=== PATIENT | female | born 1940 | race Caucasian/White ===

== ENCOUNTER 2017-10-18 05:30 | Emergency (ER) | payer MEDICARE ==
[2017-10-18] MEDS ORDERED: IBUPROFEN 600 MG TAB PO STA (05:41)
--- NOTE | 2017-10-18 05:41 | ED ---
General Adult HPI - General Stated complaint: Sore Throat Time Seen by Provider: 10/18/17 05:30 Source: RN notes reviewed - History of Present Illness Initial comments: This is a 77-year-old female presents emergency department stating that she's had a sore throat since yesterday but at 4:30 this point she woke up and was very dry and was a lot more painful. Patient states currently he is gotten much better and she's feeling better. Patient denies any fever chills. Patient denies any difficulty breathing shortness of breath per patient denies any. Patient denies any chest pain difficulty breathing. Patient states she has had some postnasal drip and when I mentioned it she thought that was all very likely possibility for the sore throat. Patient denies any ear pain. Patient denies any neck pain or headache. - Related Data Home Medications Medication Instructions Recorded Confirmed metFORMIN HCL [Glucophage] 500 mg PO BID 10/13/15 10/13/15 Allergies Allergy/AdvReac Type Severity Reaction Status Date / Time codeine AdvReac Nausea Verified 10/13/15 14:34 Review of Systems ROS Statement: Those systems with pertinent positive or pertinent negative responses have been documented in the HPI. ROS Other: All systems not noted in ROS Statement are negative. Past Medical History Past Medical History: No Reported History History of Any Multi-Drug Resistant Organisms: None Reported Past Surgical History: Cholecystectomy, Orthopedic Surgery, Tonsillectomy, Tubal Ligation Additional Past Surgical History / Comment(s): several foot suregeries. lert knee tumor removed, jaw surgery Past Psychological History: No Psychological Hx Reported Smoking Status: Never smoker Past Alcohol Use History: None Reported Past Drug Use History: None Reported General Exam - General Exam Comments Initial Comments: GENERAL: Patient is well-developed and well-nourished. Patient is nontoxic and well- hydrated and is in mild distress. ENT: Neck is soft and supple. No significant lymphadenopathy is noted. Oropharynx is clear. Moist mucous membranes. Neck has full range of motion without eliciting any pain. EYES: The sclera were anicteric and conjunctiva were pink and moist. Extraocular movements were intact and pupils were equal round and reactive to light. Eyelids were unremarkable. PULMONARY: Unlabored respirations. Good breath sounds bilaterally. No audible rales rhonchi or wheezing was noted. CARDIOVASCULAR: There is a regular rate and rhythm without any murmurs gallops or rubs. ABDOMEN: Soft and nontender with normal bowel sounds. No palpable organomegaly was noted. There is no palpable pulsatile mass. SKIN: Skin is clear with no lesions or rashes and otherwise unremarkable. NEUROLOGIC: Patient is alert and oriented x3. Cranial nerves II through XII are grossly intact. Motor and sensory are also intact. Normal speech, volume and content. Symmetrical smile. MUSCULOSKELETAL: Normal extremities with adequate strength and full range of motion. LYMPHATICS: No significant lymphadenopathy is noted PSYCHIATRIC: Normal psychiatric evaluation. Course Vital Signs 10/18/17 05:44 Temperature 99.1 F Pulse Rate 68 Respiratory 18 Rate Blood Pressure 179/74 O2 Sat by Pulse 95 Oximetry Medical Decision Making - Lab Data Lab Results 10/18/17 Range/Units 05:40 Group A Strep Rapid Negative (Negative) Disposition Clinical Impression: Acute viral pharyngitis, Postnasal drip Disposition: HOME SELF-CARE Condition: Good Instructions: Pharyngitis (ED) Referrals: Yaneth Cook MD [Primary Care Provider] - 1-2 days Time of Disposition: 06:07
[2017-10-18 05:47] VITALS: BP 179/74; PULSE 68; RESP 18; TEMP 99.1
== END 2017-10-18 06:13 | disposition home or self-care (01) ==
LOC: EC 05:30
DX: J02.9 Acute pharyngitis, unspecified (principal); R09.82 Postnasal drip; Z79.84 Long term (current) use of oral hypoglycemic drugs; Z88.5 Allergy status to narcotic agent
CPT/HCPCS: 87081; 87430; 99283

== ENCOUNTER 2018-05-19 09:52 | Emergency (ER) | payer MEDICARE ==
[2018-05-19] MEDS ORDERED: KETOROLAC 60 MG/2 ML VIAL IM STA (10:27)
[2018-05-19] MEDS ORDERED: predniSONE 50 MG TAB PO STA (10:27)
--- NOTE | 2018-05-19 10:34 | ED ---
General Adult HPI - General Chief complaint: Back Pain/Injury Stated complaint: left sided back pain radiating down left leg Time Seen by Provider: 05/19/18 10:00 Source: patient, RN notes reviewed Mode of arrival: ambulatory Limitations: no limitations - History of Present Illness Initial comments: This is a 77-year-old female who comes in complaining of back pain on the left side which radiates down to her anterior thigh is a little bit into the groin. Patient states it started about a month ago. Patient states she's been seeing a chiropractor and didn't see another physician they told it was probably muscular and it been working on it since. Patient states none of this is helped. Patient states the pain is worse when she standing and tries to lift her leg. Patient states if she lies down the pain is always gone away completely patient denies any numbness or weakness patient denies any urinary incontinence or retention. Patient denies any dysuria hematuria urinary frequency. Patient denies any fever chills per patient denies any abdominal pain. Patient denies any injury or trauma. - Related Data Home Medications Medication Instructions Recorded Confirmed metFORMIN HCL [Glucophage] 500 mg PO BID 10/13/15 10/13/15 Previous Rx's Medication Instructions Recorded predniSONE 40 mg PO DAILY #8 tab 05/19/18 Allergies Allergy/AdvReac Type Severity Reaction Status Date / Time codeine AdvReac Nausea Verified 05/19/18 10:04 Review of Systems ROS Statement: Those systems with pertinent positive or pertinent negative responses have been documented in the HPI. ROS Other: All systems not noted in ROS Statement are negative. Past Medical History Past Medical History: No Reported History History of Any Multi-Drug Resistant Organisms: None Reported Past Surgical History: Cholecystectomy, Orthopedic Surgery, Tonsillectomy, Tubal Ligation Additional Past Surgical History / Comment(s): several foot surgeries. left knee tumor removed, jaw surgery Past Psychological History: No Psychological Hx Reported Smoking Status: Never smoker Past Alcohol Use History: None Reported Past Drug Use History: None Reported General Exam - General Exam Comments Initial Comments: GENERAL: Patient is well-developed and well-nourished. Patient is nontoxic and well- hydrated and is in no acute distress. ENT: Neck is soft and supple. No significant lymphadenopathy is noted. Oropharynx is clear. Moist mucous membranes. Neck has full range of motion without eliciting any pain. EYES: The sclera were anicteric and conjunctiva were pink and moist. Extraocular movements were intact and pupils were equal round and reactive to light. Eyelids were unremarkable. PULMONARY: Unlabored respirations. Good breath sounds bilaterally. No audible rales rhonchi or wheezing was noted. CARDIOVASCULAR: There is a regular rate and rhythm without any murmurs gallops or rubs. ABDOMEN: Soft and nontender with normal bowel sounds. No palpable organomegaly was noted. There is no palpable pulsatile mass. SKIN: Skin is clear with no lesions or rashes and otherwise unremarkable. NEUROLOGIC: Patient is alert and oriented x3. Cranial nerves II through XII are grossly intact. Motor and sensory are also intact. Normal speech, volume and content. Symmetrical smile. Patient's straight leg test bilaterally is normal. MUSCULOSKELETAL: Normal extremities with adequate strength and full range of motion. No lower extremity swelling or edema. No calf tenderness. Patient has no CVA tenderness. Patient has no pain with movement while lying but when she stands she has pain with lifting her leg. LYMPHATICS: No significant lymphadenopathy is noted PSYCHIATRIC: Normal psychiatric evaluation. Limitations: no limitations Course Vital Signs 05/19/18 09:57 Temperature 97.4 F L Pulse Rate 66 Respiratory 18 Rate Blood Pressure 196/86 O2 Sat by Pulse 97 Oximetry Medical Decision Making - Medical Decision Making Patient received prednisone and Toradol emergency department. Patient's lumbosacral spine show degenerative disc disease facet arthropathy some spinal curvature and osteopenia. - Lab Data Lab Results 05/19/18 Range/Units 10:30 Urine Color Light Yellow Urine Appearance Clear (Clear) Urine pH 5.5 (5.0-8.0) Ur Specific [place] 1.026 (1.001-1.035) Urine Protein Negative (Negative) Urine Glucose (UA) Negative (Negative) Urine Ketones Negative (Negative) Urine Blood Negative (Negative) Urine Nitrite Negative (Negative) Urine Bilirubin Negative (Negative) Urine Urobilinogen <2.0 (<2.0) mg/dL Ur Leukocyte Esterase Moderate H (Negative) Urine RBC 1 (0-5) /hpf Urine WBC 6 H (0-5) /hpf Ur Squamous Epith Cells 4 (0-4) /hpf Urine Bacteria Rare H (None) /hpf Urine Mucus Rare H (None) /hpf Disposition Clinical Impression: Sciatica Disposition: HOME SELF-CARE Instructions: Sciatica (ED) Prescriptions: predniSONE 40 mg PO DAILY #8 tab Is patient prescribed a controlled substance at d/c from ED?: No Referrals: Yaneth Cook MD [Primary Care Provider] - 1-2 days Time of Disposition: 11:26
--- NOTE | 2018-05-19 10:53 | XR ---
Lumbosacral spine HISTORY: Left-sided back pain radiating down left leg 5 views of the lumbosacral spine There is no evident spondylolysis. Minimal anterolisthesis grade 1 L5-S1. Sclerosis present in the po sterior elements compatible with facet arthropathy. Lumbar vertebral bodies show preserved height and alignment. There is a spinal curvature. Multilevel spondylosis is present. Loss of disc height is pr esent at the intervertebral levels, there is associated vacuum phenomenon at L4-5, L5-S1. Bone minera lization is reduced. Surgical clips noted incidentally in the right upper quadrant. IMPRESSION: Degenerative disc disease, facet arthropathy, spinal curvature. Osteopenia. Lumbar MRI ma y be of benefit.
[2018-05-19 10:57] LABS: Appearance,Urine Clear (Clear); Bacteria,Urine Rare /hpf; Bilirubin,Urine Negative (Negative); Blood,Urine Negative (Negative); Color,Urine Light Yellow; Glucose,Urine (UA) Negative (Negative); Ketones,Urine Negative (Negative); Leukocyte Esterase,Urine Moderate (Negative); Mucus,Urine Rare /hpf; Nitrite,Urine Negative (Negative); PH, Urine 5.5 (5.0-8.0); Protein,Urine Negative (Negative); RBC,Urine 1 /hpf (0-5); Specific Gravity,Urine 1.026 (1.001-1.035); Squamous Epithelial Cell,Urine 4 /hpf (0-4); Urobilinogen,Urine <2.0 mg/dL (<2.0); WBC,Urine 6 /hpf (0-5)
[2018-05-19 11:37] VITALS: BP 180/85; PULSE 85; RESP 16; TEMP 97
== END 2018-05-19 11:37 | disposition home or self-care (01) ==
LOC: EC 09:52
DX: M54.30 Sciatica, unspecified side (principal); M12.88 Other specific arthropathies, not elsewhere classified, other specified site; M85.88 Other specified disorders of bone density and structure, other site; Z79.84 Long term (current) use of oral hypoglycemic drugs; Z88.5 Allergy status to narcotic agent
CPT/HCPCS: 81001; 72110; 99283; 96372; J1885; J7512

== ENCOUNTER → 2018-06-12 | Outpatient (CLI) | payer MEDICARE ==
--- NOTE | 2018-06-12 20:44 | MR ---
EXAMINATION TYPE: MR lumbar spine wo/w con DATE OF EXAM: 06/12/2018 COMPARISON: None HISTORY: Acute left side low back pain w/ sciatica. TECHNIQUE: Multiplanar, multisequence images of the lumbar spine were acquired utilizing [address] gadolinium contrast. FINDINGS: Vertebral body heights are maintained. There is patchy bone marrow signal that is overall w ithin normal limits. The conus medullaris is unremarkable terminating at T12-L1. Post contrast images demonstrate no abnormal contrast enhancement. Multilevel disc desiccation is seen throughout the vis ualized thoracolumbar spine. A T2/T1 hyperintense vertebral body hemangioma is present of L3. Probabl e bilateral renal sinus cysts are T2 hyperintense and T1 hypointense. L1-L2: There is a broad-based disc bulge and facet arthropathy resulting in mild bilateral neural for aminal narrowing. No significant spinal canal stenosis. L2-L3: There is a broad-based disc bulge, ligamentum flavum buckling and facet arthropathy resulting in mild bilateral neural foraminal narrowing. No spinal canal stenosis. L3-L4: There is a left eccentric broad-based disc bulge and facet arthropathy as well as ligamentum f lavum buckling resulting in moderate spinal canal stenosis, moderate left neural foraminal narrowing and mild right neural foraminal narrowing. L4-L5: There is extensive facet arthropathy and ligamentum flavum buckling on the left impressing upo n the thecal sac and creating focal moderate to severe spinal canal stenosis as well as moderate bila teral neural foraminal narrowing in combination with a broad-based disc bulge. L5-S1: There is a small central disc herniation/extrusion with 2 mm cranial migration of the disc fra gment superimposed upon a broad-based disc bulge. There is additionally facet arthropathy and ligamen viola flavum buckling creating mild right neural foraminal narrowing and mild spinal canal stenosis. Le ft neural foramen is patent. IMPRESSION: 1. Small central disc herniation at L5-S1 with 2 mm disc extrusion cranially creating mild spinal can al stenosis. 2. Extensive left lateral ligamentum flavum buckling and facet arthropathy at L4-L5 creating focal mo derate to severe spinal canal stenosis at this level and moderate bilateral neural foraminal narrowin g in combination with degenerative disc disease. 3. Multilevel degenerative disc disease of the visualized thoracolumbar spine resulting in moderate s ann canal stenosis at L3-L4 and variable degrees of neural foraminal narrowing as described above. 4. Probable bilateral renal sinus cysts. Renal ultrasound or CT urogram could be performed for confir mation. 5. No abnormal postcontrast enhancement of the lumbar spine.
== END | disposition home or self-care (01) ==
LOC: RADMRIMAIN 10:00
PROVIDERS: ATTEND Internal Medicine
DX: M48.07 Spinal stenosis, lumbosacral region (principal); M99.73 Connective tissue and disc stenosis of intervertebral foramina of lumbar region; M51.17 Intervertebral disc disorders with radiculopathy, lumbosacral region; M51.15 Intervertebral disc disorders with radiculopathy, thoracolumbar region; M46.96 Unspecified inflammatory spondylopathy, lumbar region
CPT/HCPCS: 72158; A9581

== ENCOUNTER → 2018-09-09 | Outpatient (CLI) | payer OTHER ==
--- NOTE | 2018-09-09 13:13 | XR ---
EXAMINATION TYPE: XR knee complete RT DATE OF EXAM: 09/09/2018 CLINICAL HISTORY: pain TECHNIQUE: Three views of the right knee are obtained. COMPARISON: None. FINDINGS: There is no acute fracture/dislocation. Moderate to severe degenerative joint space narrow ing. The overlying soft tissue appears unremarkable. IMPRESSION: There is no acute fracture or dislocation.ICD 10 NO FRACTURE, INITIAL EVALUATION
--- NOTE | 2018-09-09 13:14 | XR ---
EXAMINATION TYPE: XR femur LT DATE OF EXAM: 09/09/2018 CLINICAL HISTORY: pain TECHNIQUE: Two views of the left femur are obtained. COMPARISON: None. FINDINGS: There is no acute fracture or dislocation seen of the femur. Moderate joint space narrowi ng about the left hip. Sclerosis of distal left femur compatible with prior surgical intervention. The overlying soft tissue appears unremarkable. IMPRESSION: There is no acute fracture or dislocation seen of the femur. ICD 10 NO FRACTURE, INITIAL EVALUATION
--- NOTE | 2018-09-09 13:37 | XR ---
EXAMINATION TYPE: XR Hip LT and AP Pelvis DATE OF EXAM: 09/09/2018 COMPARISON: NONE HISTORY: Pain after a fall on August 27, 2018 TECHNIQUE: A single AP view of the pelvis is obtained. Two views of the left hip are obtained. FINDINGS: There is no acute fracture/dislocation evident in the pelvis. The hip joints demonstrate bilateral moderate femoral acetabular arthropathy. Periosteal reaction is seen along the medial steve x of the left femoral neck. The overlying soft tissue appears unremarkable. Two views of left hip show no acute displaced fracture or dislocation. Rostral reaction is seen as de scribed above. No focal lytic or sclerotic lesion seen in the proximal left femur. The overlying sof t tissue is unremarkable. Moderate degenerative changes of the lumbosacral junction are also partial ly visualized. IMPRESSION: There is no acute displaced fracture or dislocation in the pelvis or left hip. However t here is periosteal reaction along the medial left femoral neck that could relate to insufficiency fra cture and could be confirmed with either nuclear medicine bone scan or MRI.
== END | disposition home or self-care (01) ==
LOC: RADXRMAIN 12:47
PROVIDERS: ATTEND Emergency Medicine
DX: M89.8X8 Other specified disorders of bone, other site (principal); S80.01XA Contusion of right knee, initial encounter; M79.605 Pain in left leg
CPT/HCPCS: 73502

== ENCOUNTER → 2018-10-23 | Outpatient (CLI) | payer MEDICARE ==
[2018-10-23 11:39] LABS: Appearance,Urine Clear (Clear); Bilirubin,Urine Negative (Negative); Blood,Urine Negative (Negative); Color,Urine Light Yellow; Glucose,Urine (UA) Negative (Negative); HCT 38.1 % (34.0-46.0); HGB 12.6 gm/dL (11.4-16.0); Ketones,Urine Negative (Negative); Leukocyte Esterase,Urine Negative (Negative); MCH 29.8 pg (25.0-35.0); MCV 90.3 fL (80.0-100.0); Mean Platelet Volume 7.2; Nitrite,Urine Negative (Negative); Platelet Count 215 k/uL (150-450); Protein,Urine Negative (Negative); RBC 4.22 m/uL (3.80-5.40); RDW 14.1 % (11.5-15.5); Urobilinogen,Urine <2.0 mg/dL (<2.0); WBC 4.8 k/uL (3.8-10.6)
[2018-10-23 11:46] LABS: INR 0.9 (<1.2); Partial Thromboplastin Time 24.4 sec (22.0-30.0); Prothrombin Time 9.9 sec (9.0-12.0)
[2018-10-23 12:02] LABS: Anion Gap 6 mmol/L; Blood Urea Nitrogen 15 mg/dL (7-17); Carbon Dioxide 26 mmol/L (22-30); Chloride 108 mmol/L (98-107); Potassium 4.1 mmol/L (3.5-5.1); Sodium 140 mmol/L (137-145)
== END | disposition home or self-care (01) ==
LOC: LABPAT 11:03
PROVIDERS: ATTEND Orthopaedic Surgery
DX: Z01.812 Encounter for preprocedural laboratory examination (principal)
CPT/HCPCS: 36415; 80051; 81003; 82565; 84520; 85027; 85610; 85730; 86850; 86900; 86901; 87070

== ENCOUNTER 2018-10-30 15:27 | Emergency (ER) | payer MEDICARE ==
[2018-10-30] MEDS ORDERED: KETOROLAC 30 MG/ML 1 ML VIAL IVP STA (16:10)
--- NOTE | 2018-10-30 16:12 | ED ---
Abdominal Pain HPI - General Chief Complaint: Abdominal Pain Stated Complaint: Abd pain Time Seen by Provider: 10/30/18 15:53 Source: patient Mode of arrival: ambulatory Limitations: no limitations - History of Present Illness Initial Comments: Residual female presenting with right upper quadrant constant sharp and stabbing chest pain that began yesterday without inciting event, is exacerbated by a deep inspiration and not alleviated by anything. Patient states started taking 25 mg of metoprolol yesterday which was when the pain started. She states started taking it for "skipped beat" heart rate as well as blood pressure. She admits to a past surgical history of cholecystectomy. She denies any history of heart attack, hyperlipidemia or smoking. She had a normal stress test one year prior. Denies any history of DVT/PE, recent surgery , active cancer. - Related Data Home Medications Medication Instructions Recorded Confirmed Acetaminophen Tab [Tylenol Tab] 650 mg PO Q6H PRN 10/25/18 10/25/18 Garlic 1 each PO DAILY 10/25/18 10/25/18 Ibuprofen 800 mg PO DIRECTED PRN 10/25/18 10/25/18 Liver Cleanse Supplement 1 dose PO DIRECTED 10/25/18 Metoprolol Tartrate [Lopressor] 25 mg PO BID 10/29/18 10/29/18 Allergies Allergy/AdvReac Type Severity Reaction Status Date / Time codeine AdvReac Nausea Verified 10/30/18 15:31 Review of Systems ROS Statement: Those systems with pertinent positive or pertinent negative responses have been documented in the HPI. Review of Systems Constitutional: Denies fever, chills Eyes: Denies change in vision, Denies pain Ears, nose, mouth, throat: Denies headaches, Denies sore throat Cardiovascular: Denies chest pain. Denies palpitations Respiratory: Denies shortness of breath, Denies cough Gastrointestinal: Positive abdominal pain. Denies nausea, vomiting, diarrhea. Genitourinary: Denies hematuria, Denies infections Musculoskeletal: Denies pain, Denies swelling Integumentary: Denies rash Neurological: Denies headache, focal weakness, focal numbness Psychiatric: Denies anxiety, Denies depression Hematologic/Lymphatic: Denies easy bleeding or bruising ROS Other: All systems not noted in ROS Statement are negative. Past Medical History Past Medical History: Hypertension History of Any Multi-Drug Resistant Organisms: None Reported Past Surgical History: Cholecystectomy, Orthopedic Surgery, Tonsillectomy, Tubal Ligation Additional Past Surgical History / Comment(s): several foot surgeries. left knee tumor removed, jaw surgery Past Psychological History: No Psychological Hx Reported Smoking Status: Never smoker Past Alcohol Use History: None Reported Past Drug Use History: None Reported General Exam - General Exam Comments Initial Comments: General: Awake, alert, No acute Distress HENT: Normocephalic. Atraumatic Eyes: PERRL. EOMI. No scleral icterus. No injected conjunctiva Neck: Full ROM Chest/Lungs: Clear to auscultation bilaterally. No wheezing, rhonchi, or rales Cardiac: Regular rate, rhythm. No murmurs or rubs Abdomen/GI: Soft, nontender, nondistended. No rebound, guarding, or rigidity. Musculoskeletal: Full ROM Skin: Warm, dry, intact Neurologic: A/Ox3, no weakness, no sensory deficit, no abnormal gait, no coordination deficit Limitations: no limitations Course Vital Signs 10/30/18 10/30/18 10/30/18 15:29 17:09 18:35 Temperature 97.8 F Pulse Rate 70 57 L 60 Respiratory 18 18 18 Rate Blood Pressure 162/78 163/73 159/74 O2 Sat by Pulse 99 97 96 Oximetry 10/30/18 19:37 Temperature 97.1 F L Pulse Rate 63 Respiratory 16 Rate Blood Pressure 147/83 O2 Sat by Pulse 97 Oximetry Medical Decision Making - Medical Decision Making 78-year-old female presenting with right upper quadrant tenderness. Initial exam the patient is awake alert and she is in no acute distress. Her vital signs are stable. Her EKG shows normal sinus rhythm with occasional PVCs at a rate of 73 bpm. Her well score is 1.5. D-dimer was negative. Her chest x-ray and CT of her abdomen and pelvis was negative as well. Her laboratory workup was unremarkable. At this time no further emergent workup indicated. Patient' s heart score is 3. At this time she is stable for outpatient follow-up of her symptoms this week. - Lab Data Result diagrams: 10/30/18 16:37 10/30/18 16:37 Lab Results 10/30/18 10/30/18 10/30/18 Range/Units 16:37 16:37 16:37 WBC 6.8 (3.8-10.6) k/uL RBC 4.12 (3.80-5.40) m/uL Hgb 12.2 (11.4-16.0) gm/dL Hct 37.6 (34.0-46.0) % MCV 91.4 (80.0-100.0) fL MCH 29.7 (25.0-35.0) pg MCHC 32.5 (31.0-37.0) g/dL RDW 14.4 (11.5-15.5) % Plt Count 208 (150-450) k/uL Neutrophils % 70 % Lymphocytes % 20 % Monocytes % 5 % Eosinophils % 2 % Basophils % 1 % Neutrophils # 4.8 (1.3-7.7) k/uL Lymphocytes # 1.4 (1.0-4.8) k/uL Monocytes # 0.4 (0-1.0) k/uL Eosinophils # 0.2 (0-0.7) k/uL Basophils # 0.0 (0-0.2) k/uL D-Dimer 0.50 (<0.60) mg/L FEU Sodium 141 (137-145) mmol/L Potassium 3.4 L (3.5-5.1) mmol/L Chloride 112 H (98-107) mmol/L Carbon Dioxide 23 (22-30) mmol/L Anion Gap 6 mmol/L BUN 21 H (7-17) mg/dL Creatinine 0.74 (0.52-1.04) mg/dL Est GFR (CKD-EPI)AfAm >90 (>60 ml/min/1.73 sqM) Est GFR (CKD-EPI)NonAf 80 (>60 ml/min/1.73 sqM) Glucose 116 H (74-99) mg/dL Calcium 9.1 (8.4-10.2) mg/dL Total Bilirubin 0.4 (0.2-1.3) mg/dL Conjugated Bilirubin 0.0 (0.0-0.3) mg/dL Unconjugated Bilirubin 0.3 (0.0-1.1) mg/dL Delta Bilirubin 0.1 (0.0-0.2) mg/dL AST 19 (14-36) U/L ALT 27 (9-52) U/L Alkaline Phosphatase 65 (38-126) U/L Troponin I (0.000-0.034) ng/mL NT-Pro-B Natriuret Pep pg/mL Total Protein 6.3 (6.3-8.2) g/dL Albumin 3.9 (3.5-5.0) g/dL Lipase 214 (23-300) U/L Urine Color Urine Appearance (Clear) Urine pH (5.0-8.0) Ur Specific [place] (1.001-1.035) Urine Protein (Negative) Urine Glucose (UA) (Negative) Urine Ketones (Negative) Urine Blood (Negative) Urine Nitrite (Negative) Urine Bilirubin (Negative) Urine Urobilinogen (<2.0) mg/dL Ur Leukocyte Esterase (Negative) 10/30/18 10/30/18 10/30/18 Range/Units 16:37 16:37 19:13 WBC (3.8-10.6) k/uL RBC (3.80-5.40) m/uL Hgb (11.4-16.0) gm/dL Hct (34.0-46.0) % MCV (80.0-100.0) fL MCH (25.0-35.0) pg MCHC (31.0-37.0) g/dL RDW (11.5-15.5) % Plt Count (150-450) k/uL Neutrophils % % Lymphocytes % % Monocytes % % Eosinophils % % Basophils % % Neutrophils # (1.3-7.7) k/uL Lymphocytes # (1.0-4.8) k/uL Monocytes # (0-1.0) k/uL Eosinophils # (0-0.7) k/uL Basophils # (0-0.2) k/uL D-Dimer (<0.60) mg/L FEU Sodium (137-145) mmol/L Potassium (3.5-5.1) mmol/L Chloride (98-107) mmol/L Carbon Dioxide (22-30) mmol/L Anion Gap mmol/L BUN (7-17) mg/dL Creatinine (0.52-1.04) mg/dL Est GFR (CKD-EPI)AfAm (>60 ml/min/1.73 sqM) Est GFR (CKD-EPI)NonAf (>60 ml/min/1.73 sqM) Glucose (74-99) mg/dL Calcium (8.4-10.2) mg/dL Total Bilirubin (0.2-1.3) mg/dL Conjugated Bilirubin (0.0-0.3) mg/dL Unconjugated Bilirubin (0.0-1.1) mg/dL Delta Bilirubin (0.0-0.2) mg/dL AST (14-36) U/L ALT (9-52) U/L Alkaline Phosphatase (38-126) U/L Troponin I <0.012 (0.000-0.034) ng/mL NT-Pro-B Natriuret Pep 377 pg/mL Total Protein (6.3-8.2) g/dL Albumin (3.5-5.0) g/dL Lipase (23-300) U/L Urine Color Light Yellow Urine Appearance Clear (Clear) Urine pH 6.0 (5.0-8.0) Ur Specific [place] 1.039 H (1.001-1.035) Urine Protein Negative (Negative) Urine Glucose (UA) Negative (Negative) Urine Ketones Negative (Negative) Urine Blood Negative (Negative) Urine Nitrite Negative (Negative) Urine Bilirubin Negative (Negative) Urine Urobilinogen <2.0 (<2.0) mg/dL Ur Leukocyte Esterase Negative (Negative) Disposition Clinical Impression: Abdominal pain Disposition: HOME SELF-CARE Instructions (If sedation given, give patient instructions): Abdominal Pain (ED ), Chest Wall Pain (ED) Is patient prescribed a controlled substance at d/c from ED?: No Referrals: Yaneth Cook MD [Primary Care Provider] - 1-2 days
[2018-10-30 17:02] LABS: Basophils % (A) 1 %; Eosinophils # (A) 0.2 k/uL (0-0.7); Eosinophils % (A) 2 %; HCT 37.6 % (34.0-46.0); HGB 12.2 gm/dL (11.4-16.0); Lymphocytes # (A) 1.4 k/uL (1.0-4.8); Lymphocytes % (A) 20 %; MCH 29.7 pg (25.0-35.0); MCHC 32.5 g/dL (31.0-37.0); MCV 91.4 fL (80.0-100.0); Mean Platelet Volume 7.8; Monocytes # (A) 0.4 k/uL (0-1.0); Monocytes % (A) 5 %; Neutrophils # (A) 4.8 k/uL (1.3-7.7); Neutrophils % (A) 70 %; Platelet Count 208 k/uL (150-450); RBC 4.12 m/uL (3.80-5.40); RDW 14.4 % (11.5-15.5); WBC 6.8 k/uL (3.8-10.6)
--- NOTE | 2018-10-30 17:06 | XR ---
EXAMINATION TYPE: XR chest 2V DATE OF EXAM: 10/30/2018 COMPARISON: Chest radiograph 11/19/2017 HISTORY: Chest pain TECHNIQUE: Frontal and lateral views of the chest are obtained. FINDINGS: There is no focal air space opacity, pleural effusion, or pneumothorax seen. The cardiac silhouette size is within normal limits. The osseous structures are intact. IMPRESSION: No acute cardiopulmonary process. No significant interval change.
[2018-10-30 17:17] LABS: ALT 27 U/L (9-52); AST 19 U/L (14-36); Albumin 3.9 g/dL (3.5-5.0); Alkaline Phosphatase 65 U/L (38-126); Anion Gap 6 mmol/L; Bilirubin, Delta 0.1 mg/dL (0.0-0.2); Bilirubin,Unconjugated 0.3 mg/dL (0.0-1.1); Blood Urea Nitrogen 21 mg/dL (7-17); Calcium 9.1 mg/dL (8.4-10.2); Carbon Dioxide 23 mmol/L (22-30); Chloride 112 mmol/L (98-107); Glucose 116 mg/dL (74-99); Lipase 214 U/L (23-300); Potassium 3.4 mmol/L (3.5-5.1); Sodium 141 mmol/L (137-145); Total Bilirubin 0.4 mg/dL (0.2-1.3); Total Protein 6.3 g/dL (6.3-8.2)
[2018-10-30] MEDS ORDERED: ACETAMINOPHEN TAB 500 MG TAB PO STA (18:00)
--- NOTE | 2018-10-30 18:28 | CT ---
EXAMINATION TYPE: CT abdomen pelvis w con DATE OF EXAM: 10/30/2018 COMPARISON: None. HISTORY: Right upper quadrant abdominal pain. CT DLP: 1179 mGycm Automated exposure control for dose reduction was used. TECHNIQUE: Helical acquisition of images was performed from the lung bases through the pelvis. CONTRAST: Performed without Oral Contrast and with IV Contrast, patient injected with 100ml mL of Isovue 300. FINDINGS: LUNG BASES: No significant abnormality is appreciated. LIVER/GB: Liver is unremarkable. The gallbladder is absent. PANCREAS: No significant abnormality is seen. SPLEEN: No significant abnormality is seen. ADRENALS: No significant abnormality is seen. KIDNEYS: Bilateral parapelvic cysts are present. The kidneys excrete contrast symmetrically on delaye d phase. No hydronephrosis or hydroureter. FREE AIR: No free air is visualized. RETROPERITONEAL ADENOPATHY: None visualized REPRODUCTIVE ORGANS: No significant abnormality is seen URINARY BLADDER: No significant abnormality is seen. PELVIC ADENOPATHY: None visualized. OSSEOUS STRUCTURES: No significant abnormality is seen. BOWEL: No significant abnormality is seen. IMPRESSION: NO CT FINDINGS TO EXPLAIN PATIENT'S SYMPTOMS.
[2018-10-30 19:29] LABS: Appearance,Urine Clear (Clear); Bilirubin,Urine Negative (Negative); Blood,Urine Negative (Negative); Color,Urine Light Yellow; Glucose,Urine (UA) Negative (Negative); Ketones,Urine Negative (Negative); Leukocyte Esterase,Urine Negative (Negative); Nitrite,Urine Negative (Negative); Protein,Urine Negative (Negative); Specific Gravity,Urine 1.039 (1.001-1.035); Urobilinogen,Urine <2.0 mg/dL (<2.0)
[2018-10-30 19:38] VITALS: BP 147/83; PULSE 63; RESP 16; TEMP 97.1
== END 2018-10-30 19:51 | disposition home or self-care (01) ==
LOC: EC 15:27
DX: R10.11 Right upper quadrant pain (principal); I49.3 Ventricular premature depolarization; I10 Essential (primary) hypertension; Z79.899 Other long term (current) drug therapy; Z88.5 Allergy status to narcotic agent; Z90.49 Acquired absence of other specified parts of digestive tract
CPT/HCPCS: 36415; 93005; 85379; 83880; 80048; 80076; 83690; 84484; 85025; 81003; 71046; 74177; 99284; Q9967

== ENCOUNTER 2018-11-01 05:50 | Inpatient (IN) | payer MEDICARE ==
[~2018-11-01 05:50] MED LIST: ACETAMINOPHEN TAB 500 MG TAB PO ONE; LIDOCAINE 1% 20 ML VIAL (10MG/ML) FOR IV START INTRADERMA PRN; MELOXICAM 7.5 MG TAB PO ONE; MIDAZOLAM 2 MG/2 ML VIAL IV PRN; TRANEXAMIC ACID 1,000 MG in SODIUM CHLORIDE 0.9% 100 ML IVPB ONE; ceFAZolin IN SWFI 2 GM/20 ML SYRINGE IVP ONE; fentaNYL (PF) 50 MCG/ML 2 ML AMP IV PRN
[2018-11-01] MEDS ORDERED: ROPIVACAINE 246.25 MG, EPINEPHrine 0.5 MG, KETOROLAC 30 MG, cloNIDine HCL/PF 80 MCG, WA... MISCELLANE ONE ×5 (05:57)
[2018-11-01] MEDS: LACTATED RINGERS 1,000 ML IV SCH (06:36)
[2018-11-01] MEDS ORDERED: ONDANSETRON 4 MG/2 ML VIAL IVP ONE (06:48)
[2018-11-01] MEDS ORDERED: fentaNYL (PF) 50 MCG/ML 2 ML AMP ONE (06:55)
[2018-11-01] MEDS ORDERED: MIDAZOLAM 2 MG/2 ML VIAL ONE (06:55)
[2018-11-01] MEDS ORDERED: HEPARIN SODIUM,PORCINE 10,000 UNIT/ML 1 ML VIAL ONE (06:55)
[2018-11-01] MEDS ORDERED: TRANEXAMIC ACID 1,000 MG/10 ML VIAL ONE (06:55)
[2018-11-01] MEDS ORDERED: SODIUM CHLORIDE 0.9% 100 ML BAG ONE (06:55)
[2018-11-01] MEDS ORDERED: ePHEDrine SULFATE/0.9% NACL/PF 50 MG/5 ML SYRINGE IV ONE (06:55)
[2018-11-01] MEDS ORDERED: PROPOFOL 10 MG/ML 20 ML VIAL IV ONE (06:55)
[2018-11-01] MEDS ORDERED: SODIUM CHLORIDE 0.9% IRRIG 1,000 ML BTL IRRIGATION ONE (06:55)
[2018-11-01] MEDS ORDERED: HYDROmorphone 0.5 MG/0.5 ML SYRINGE IVP PRN ×3 (06:58)
[2018-11-01] MEDS ORDERED: ONDANSETRON 4 MG/2 ML VIAL IVP PRN (06:58)
[2018-11-01] MEDS ORDERED: HYDROcodone/APAP 5-325MG 1 EACH TAB PO PRN ×2 (06:58)
[2018-11-01] MEDS ORDERED: hydrOXYzine PAMOATE 25 MG CAP PO PRN (06:58)
[2018-11-01] MEDS ORDERED: DIAZEPAM 5 MG TAB PO PRN (06:58)
[2018-11-01] MEDS ORDERED: MAGNESIUM HYDROXIDE 2,400 MG/10 ML CUP PO PRN (06:58)
[2018-11-01] MEDS ORDERED: NALOXONE 0.4 MG/ML 1 ML VIAL IV PRN (06:58)
[2018-11-01] MEDS ORDERED: ceFAZolin 3,000 MG in SODIUM CHLORIDE 0.9% IRRIGATIO 3,000 ML IRRIGATION ONE (07:00)
--- NOTE | 2018-11-01 08:32 | P.OP ---
Date of Procedure: 11/01/18 Preoperative Diagnosis: Severe osteoarthritis left hip Postoperative Diagnosis: Severe osteoarthritis left hip Procedure(s) Performed: Left total hip arthroplasty with a direct anterior approach Implants: [employer] nephew Polarstem size 3 standard [employer] R3, 3 hole acetabular shell, 48 mm [employer] reflection 6.5 mm cancellus screw, 20 mm 2 [employer] R3, XLPE 20 acetabular liner [employer]hew Oxinium femoral head 32 m, +0 All components were press-fit. The articulation is Oxinium on polyethylene. Anesthesia: spinal Surgeon: Jose Cruz Woods Animal Chiropractor #1: Grace Miller Estimated Blood Loss (ml): 150 Pathology: other (Femoral head) Condition: stable Disposition: PACU Indications for Procedure: After failure of conservative treatment we discussed the surgical and nonsurgical treatment options at length. Patient wishes to proceed with a total hip arthroplasty with a direct anterior approach. Complications specific to this procedure were discussed at length, including but not limited to infection, leg length discrepancy, dislocation, and nerve injury. Patient is aware of all these complications and informed consent was obtained Operative Findings: The operative findings are consistent with severe osteoarthritis of the left hip Description of Procedure: Patient was seen and evaluated in the preoperative area, consent was reviewed, and the surgical site was marked with a skin marker. Patient was then brought to the operating room and given prophylactic antibiotics intravenously. 1 g of Tranexamic acid was also given. A spinal anesthetic was administered by the anesthesia department. The patient was then placed on the [place] table with the bony prominences well-padded. The hip area was then prepped and draped in usual sterile fashion. A universal timeout was then performed, which confirmed the patient's name, surgical site, ALLERGIES, and procedure being performed. Next the incision site was located at 1 cm distal and 1 cm lateral to the anterior superior iliac spine. The skin and subcutaneous tissues were sharply incised. Incision was carefully dissected down to the fascia overlying the tensor fascia kavitha muscle. This fascia was then incised in line with the incision. Next, using blunt finger dissection, the tensor fascia kavitha muscle was dissected off its investing fascia. The muscle was then carefully retracted laterally with a cobra retractor over the lateral neck of the femur. Next, the circumflex vessels were identified and cauterized using the AquaMantis device. The anterior hip capsule was then exposed. The capsule was then opened and an inverted T fashion. Cobra retractors were then placed intracapsularly. The proximal femur was then visualized. The femoral neck was then osteotomized appropriate level above the lesser trochanter. Small amount of traction was placed with the [place] table. A small wedge of bone was then removed from the remaining femoral head. Next, using a corkscrew femoral head was easily removed from the acetabulum. On gross visual inspection, the femoral head had complete loss of articular cartilage in multiple periarticular osteophytes. Attention was then turned to the acetabulum. the acetabulum was exposed and any remaining labrum was excised. Sequential reaming of the acetabulum was performed using fluoroscopic guidance. When the appropriate size was reached, a trial was then placed. The position and fit of the trial was checked with fluoroscopy. The trial was then removed. Then, using fluoroscopic guidance, the final implant was impacted at 20 of anteversion and 40 of abduction, and fully seated in the acetabulum. 2 screws were then placed in the acetabulum. Again fluoroscopy was used to check position of the screws. Next, the liner was then impacted, with a 20 elevated liner located in the anterior superior quadrant. Component locking was confirmed. Attention was then directed to the femur. With the aid of the [place] table, the femur was externally rotated to approximately 130, extended, and abducted under the opposite leg. A side hook was then placed under the proximal femur, and the side hook elevator was used to elevate the proximal femur. Retractors were then placed. A capsular release was performed, as well as a release of the conjoined tendon, which afforded excellent visualization of the proximal femur. Next, a box osteotome was used to lateralize the proximal femur. A seasonal retail merchandiser was then used to locate the femoral canal. Sequential broaching was then performed with appropriate size which afforded excellent fixation in the proximal femur. A trial was then placed with appropriate head and neck, and the hip was gently reduced with the aid of the [place] table. Fluoroscopy was then used to check position of the components, as well as to ensure equal leg lengths. The hip was then gently dislocated and the trials were then removed. Final implants were then impacted and the hip was again reduced. Final fluoroscopic x-rays confirmed that the components were in anatomic position, as well as equal leg lengths. The hip was also taken through range of motion, and found to be stable. The hip was then copiously irrigated with antibiotic solution with pulsatile lavage. The hip was then irrigated with Irrisept solution. The soft tissues were then injected with a ropivacaine solution, which consisted of 246.25 mg of ropivacaine, 0.5 mg of epinephrine, 30 mg of Toradol, 80 g of clonidine, and 48.45 mL of sterile water, for a total of 100 mL of fluid injected. A second dose of 1 g of Tranexamic acid was also given. the fascia was then closed with 2-0 strata fix suture. The subcutaneous tissue was closed with 3-0 Vicryl. The subcuticular tissue was closed with 3-0 strata fix suture. The skin was then closed with Dermabond glue and a sterile silver dressing. The patient was then transferred to the recovery room in stable condition. The pastoral assistant ZENAIDA Smith was required due to the complexity of surgery, and the need for skilled staff assistant for positioning, draping, exposure, retraction, and closure of the wound.
--- NOTE | 2018-11-01 09:24 | XR ---
EXAMINATION TYPE: XR Hip Limited LT DATE OF EXAM: 11/01/2018 COMPARISON: NONE HISTORY: Postsurgical TECHNIQUE: One view submitted. FINDINGS: There is postsurgical change in near anatomic alignment. There is soft tissue edema and emphysema. IMPRESSION: 1. Postoperative change. Appears in near-anatomic alignment.
[2018-11-01] MEDS: SODIUM CHLORIDE 0.9% 1,000 ML IV SCH ×2 (09:34→22:41)
--- NOTE | 2018-11-01 09:42 | FL ---
EXAMINATION TYPE: FL guidance operating room DATE OF EXAM: 11/01/2018 HISTORY: Flouroscopy time 23 seconds of fluoroscopy provided. IMPRESSION: 1. Fluoroscopy time.
[2018-11-01 09:58] VITALS: BMI 36.1
[2018-11-01] MEDS: ASPIRIN 325 MG TAB PO SCH ×2 (10:42→22:40)
[2018-11-01] MEDS: ceFAZolin IN SWFI 2 GM/20 ML SYRINGE IVP SCH ×2 (17:11→23:55)
[2018-11-01] MEDS ORDERED: SENNOSIDES-DOCUSATE SODIUM 1 EACH TAB PO SCH (21:00)
[2018-11-01] MEDS: METOPROLOL TARTRATE 25 MG TAB PO SCH (22:40)
[2018-11-02] MEDS: LACTATED RINGERS 1,000 ML IV SCH (06:36)
--- NOTE | 2018-11-02 07:20 | CONS ---
CONSULTATION DATE OF SERVICE: 11/01/2018 REASON FOR CONSULTATION: Advice regarding hypertension and other multiple medical issues requested by Dr. Woods. HISTORY OF PRESENT ILLNESS: This 78-year-old woman with a past medical history of hypertension, history of cholecystectomy, history of DJD being followed by Dr. Cook in the outpatient setting underwent left total hip joint arthroplasty for severe DJD. The patient tolerated the procedure well. Patient also complaining of some lower abdominal pain which started after falling on the ice according to her last week. The patient was apparently evaluated in the ER during that time and the ER evaluation did not show any acute abnormality and the patient was discharged on conservative medications. PAST MEDICAL HISTORY: History of hypertension, history of recent fall and abdominal pain, history of cholecystectomy, history of DJD. MEDICATIONS: Medications prior to admission include home medications are include: 1. Metoprolol 25 mg p.o. b.i.d. 2. Liver cleanse supplement. 3. Ibuprofen 800 mg q.6 p.r.n. 4. Garlic 1 tablet p.o. daily. 5. Tylenol 650 q.6 p.r.n. ALLERGIES: CODEINE. FAMILY HISTORY: History of skin cancer in the family. SOCIAL HISTORY: No history of smoking. No history of alcohol intake. REVIEW OF SYSTEMS: ENT: No diminished hearing or diminished vision. CARDIOVASCULAR SYSTEM: No angina. RESPIRATORY SYSTEM: No cough. GI: As mentioned earlier. : No dysuria. NERVOUS SYSTEM: No numbness or weakness. ALLERGY/IMMUNOLOGY: No history of asthma. MUSCULOSKELETAL: As mentioned earlier. HEMATOLOGY/ONCOLOGY: No history of anemia. ENDOCRINE: No history of diabetes mellitus or hypothyroidism. CONSTITUTIONAL: As mentioned earlier. DERMATOLOGY: Negative. RHEUMATOLOGY: Negative. PSYCHIATRY: As mentioned earlier. PHYSICAL EXAMINATION: The patient is alert and oriented x3. Pulse is 56, blood pressure 172/76, respiration 20, temperature 97.2, pulse ox 96% on room air. HEENT: Conjunctivae normal. Oral mucosa moist. NECK: No jugular venous distention. No carotid bruit. No lymph node enlargement. CARDIOVASCULAR: S1, S2 muffled. No S3, no S4. RESPIRATORY: Breath sounds diminished at the bases. No rhonchi, no crackles. ABDOMEN: Soft, minimal tenderness in the lower right costal margin subcostally present. No mass palpable. No abscess present. No ascites. LEGS: Status post surgery. NERVOUS SYSTEM: Higher function as mentioned. Moves all 4 limbs. No focal deficits. LYMPHATICS: No lymphadenopathy of the neck, axillae or groin. SKIN: No ulcer, rash or bleeding. JOINTS: As mentioned earlier. LABS: CBC within normal limits preop labs. Otherwise, D-dimer is normal. Chemistries show potassium 3.4. Triglycerides 259. UA noted. ASSESSMENT: 1. Status post left total knee joint arthroplasty for severe osteoarthritis. 2. Right-sided upper abdominal pain possibly musculoskeletal secondary from fall. 3. Hypertension. 4. History of skipped beats. 5. History of back pain, degenerative joint disease. 6. History of cholecystectomy. 7. History of orthopedic surgery. RECOMMENDATIONS AND DISCUSSION: This 78-year-old woman presented with multiple complex medical issues, we will monitor the patient closely. Continue the current medications. Continue symptomatic treatment. Will initiate the home medications. Otherwise, closely follow with Orthopedic Surgery. DVT prophylaxis. Also recommend close follow up with primary physician in outpatient setting. Thank you for letting us participate in the care of this patient. MMODL / IJN: [id number] /
[2018-11-02] MEDS ORDERED: MELOXICAM 7.5 MG TAB PO SCH (09:00)
[2018-11-02] MEDS ORDERED: HYDROcodone/APAP 7.5-325MG 1 EACH TAB PO PRN (09:04)
--- NOTE | 2018-11-02 09:10 | P.DS ---
Providers Date of admission: 11/01/18 05:50 Expected date of discharge: 11/02/18 Attending physician: Jose Cruz Woods Consults: 11/01/18 06:58 Consult Physician Routine Consulting Provider: Yaneth Cook Consult Reason/Comments: medical management Do you want consulting provider notified?: Yes 11/01/18 08:53 Consult Physician Routine Consulting Provider: Татьяна Harris Consult Reason/Comments: Medical management Do you want consulting provider notified?: Yes Primary care physician: Yaneth Cook - Discharge Diagnosis(es) (1) Primary osteoarthritis of left hip Current Visit: Yes Status: Acute (2) Status post total hip replacement, left Current Visit: Yes Status: Acute Hospital Course: This is a 78-year-old female with known history of degenerative arthritis of the left hip. The patient presents for evaluation. After discussion and consideration patient elects to proceed with total hip arthroplasty. The patient is seen preoperatively by Dr. Woods and medically cleared for surgery by their primary care physician. Patient is [facility] to [facility] 11/01/2018 for total hip arthroplasty. The procedures performed without complication or sequelae. The patient is doing well postoperatively. Labs and vital signs are stable on day of discharge. On day of discharge patient's hip incision is healing well. There is minimal erythema. There is no drainage noted at this time. There is minimal soft tissue swelling to the hip and thigh. Patient has full foot and ankle motion without difficulty or pain. Calf is soft and nontender to palpation. Neurovascular status to the left lower extremity is intact. Patient is discharged home in good condition. Opioid start talking form is reviewed and signed at patient bedside. Please see med rec for accurate list of home medications. Plan - Discharge Summary Discharge Rx Participant: No New Discharge Prescriptions: New Aspirin 325 mg PO BID #60 tab HYDROcodone/APAP 7.5-325MG [Erin 7.5-325] 1 - 2 tab PO Q6H PRN #56 tab PRN Reason: Pain Sennosides [Senokot] 1 tab PO BID #60 tablet No Action Acetaminophen Tab [Tylenol Tab] 650 mg PO Q6H PRN PRN Reason: Pain Liver Cleanse Supplement 1 dose PO DIRECTED Ibuprofen 800 mg PO Q6H PRN PRN Reason: Pain Garlic 1 tab PO DAILY Metoprolol Tartrate [Lopressor] 25 mg PO BID Discharge Medication List Acetaminophen Tab [Tylenol Tab] 650 mg PO Q6H PRN 10/25/18 [History] Garlic 1 tab PO DAILY 10/25/18 [History] Ibuprofen 800 mg PO Q6H PRN 10/25/18 [History] Liver Cleanse Supplement 1 dose PO DIRECTED 10/25/18 [History] Metoprolol Tartrate [Lopressor] 25 mg PO BID 10/29/18 [History] Aspirin 325 mg PO BID #60 tab 11/02/18 [Rx] HYDROcodone/APAP 7.5-325MG [Erin 7.5-325] 1 - 2 tab PO Q6H PRN #56 tab [Rx] Sennosides [Senokot] 1 tab PO BID #60 tablet 11/02/18 [Rx] Follow up Appointment(s)/Referral(s): Jose Cruz Woods DO [Doctor of Osteopathic Medicine] - 2 Weeks Activity/Diet/Wound Care/Special Instructions: Weightbearing as tolerated with walker. Leave dressing intact. Dressing may be removed by home care nurse or by patient in 10 days. May shower with dressing on. Please follow-up with [facility] in 2 weeks and call with any questions or concerns, . Discharge Disposition: HOME WITH HOME HEALTH SERVICES
[2018-11-02 09:19] VITALS: BP 168/73; PULSE 97; RESP 16; TEMP 98.5
[2018-11-02] MEDS: HYDROcodone/APAP 7.5-325MG 1 EACH TAB PO PRN ×2 (09:22→15:50)
[2018-11-02] MEDS: METOPROLOL TARTRATE 25 MG TAB PO SCH (09:22)
[2018-11-02] MEDS: ASPIRIN 325 MG TAB PO SCH (09:23)
[2018-11-02 09:38] LABS: Basophils % (A) 0 %; Eosinophils # (A) 0.1 k/uL (0-0.7); Eosinophils % (A) 1 %; HCT 37.7 % (34.0-46.0); HGB 12.1 gm/dL (11.4-16.0); Lymphocytes # (A) 0.8 k/uL (1.0-4.8); Lymphocytes % (A) 8 %; MCH 29.4 pg (25.0-35.0); MCHC 32.1 g/dL (31.0-37.0); MCV 91.9 fL (80.0-100.0); Mean Platelet Volume 7.2; Monocytes # (A) 0.4 k/uL (0-1.0); Monocytes % (A) 4 %; Neutrophils # (A) 9.7 k/uL (1.3-7.7); Neutrophils % (A) 87 %; Platelet Count 224 k/uL (150-450); RDW 14.3 % (11.5-15.5); WBC 11.1 k/uL (3.8-10.6)
[2018-11-02 10:06] LABS: Anion Gap 9 mmol/L; Blood Urea Nitrogen 18 mg/dL (7-17); Carbon Dioxide 22 mmol/L (22-30); Chloride 108 mmol/L (98-107); Glucose 123 mg/dL (74-99); Potassium 4.3 mmol/L (3.5-5.1); Sodium 139 mmol/L (137-145)
[2018-11-02 14:30] LABS: Appearance,Urine Clear (Clear); Bilirubin,Urine Negative (Negative); Blood,Urine Negative (Negative); Color,Urine Yellow; Glucose,Urine (UA) Negative (Negative); Ketones,Urine Negative (Negative); Leukocyte Esterase,Urine Negative (Negative); Nitrite,Urine Negative (Negative); Protein,Urine Trace (Negative); Specific Gravity,Urine 1.022 (1.001-1.035); Urobilinogen,Urine <2.0 mg/dL (<2.0)
[2018-11-02] MEDS: SODIUM CHLORIDE 0.9% 1,000 ML IV SCH (15:51)
--- NOTE | 2018-11-02 17:12 | P.PN ---
Subjective no overnight events patient is clinically doing well . Patient is being discharged today . Constitutional: Denied any fatigue denied any fever. Cardio vascular: denied any chest pain, palpitations Gastrointestinal denied any nausea vomiting Pulmonary: Denied any shortness of breath cough Neurologic denied any new focal deficits All inpatient medications were reviewed and appropriate changes in these medications as dictated in the interval history and assessment and plan. Objective - Vital Signs Vital signs: Vital Signs Temp 98.5 F 11/02/18 09:18 Pulse 97 11/02/18 09:18 Resp 16 11/02/18 09:18 BP 168/73 11/02/18 09:18 Pulse Ox 97 11/02/18 09:18 Intake & Output 11/01/18 11/02/18 11/02/18 18:59 06:59 18:59 Intake Total 1266 770 Output Total 150 Balance 1116 770 Intake: IV 876 Intake, IV Titration 390 130 Amount Sodium Chloride 0.9% 1, 390 130 000 ml @ 65 mls/hr IV . [id number] KAIT Rx#:[id number] Oral 640 Output: Estimated Blood Loss 150 Other: Voiding Method Toilet # Voids 1 2 - Exam PHYSICAL EXAMINATION: GENERAL: The patient is alert and oriented x3, not in any acute distress. Well developed, well nourished. HEENT: Pupils are round and equally reacting to light. EOMI. No scleral icterus. No conjunctival pallor. Normocephalic, atraumatic. No pharyngeal erythema. No thyromegaly. CARDIOVASCULAR: S1 and S2 present. No murmurs, rubs, or gallops. PULMONARY: Chest is clear to auscultation, no wheezing or crackles. ABDOMEN: Soft, nontender, nondistended, normoactive bowel sounds. No palpable organomegaly. MUSCULOSKELETAL: deferred to orthopedic surgery EXTREMITIES: No cyanosis, clubbing, or pedal edema. NEUROLOGICAL: Gross neurological examination did not reveal any focal deficits. SKIN: No rashes. - Labs CBC & Chem 7: 11/02/18 08:50 11/02/18 08:50 Labs: Abnormal Lab Results - Last 24 Hours (Table) 11/02/18 11/02/18 11/02/18 Range/Units 08:50 08:50 13:00 WBC 11.1 H (3.8-10.6) k/uL Neutrophils # 9.7 H (1.3-7.7) k/uL Lymphocytes # 0.8 L (1.0-4.8) k/uL Chloride 108 H (98-107) mmol/L BUN 18 H (7-17) mg/dL Glucose 123 H (74-99) mg/dL Urine Protein Trace H (Negative) Assessment and Plan Plan: -status post left knee arthroplasty for severe osteoarthritis: Pain management and DVT prophylaxis as per primary service is -Right upper quadrant abdominal pain secondary to fall and musculoskeletal injury -Hypertension -Chronic low back pain Patient is clinically doing well no further recommendations for medicine can be discharged from medical perspective reviewed her discharge medications.
== END 2018-11-02 16:17 | disposition home health service (06) | DRG 470 ==
LOC: 2ORMAIN 05:50 → 4SSUR 08:42
PROVIDERS: ADMIT Orthopaedic Surgery; ATTEND Orthopaedic Surgery
PROC: 0SRB06A Replacement of Left Hip Joint with Oxidized Zirconium on Polyethylene Synthetic Substitute, Uncemented, Open Approach (ICD-10-PCS; principal; 2018-11-01 07:00)
DX: M16.12 Unilateral primary osteoarthritis, left hip (principal); I10 Essential (primary) hypertension; W00.0XXA Fall on same level due to ice and snow, initial encounter; Z90.49 Acquired absence of other specified parts of digestive tract; Z79.1 Long term (current) use of non-steroidal anti-inflammatories (NSAID); Z79.899 Other long term (current) drug therapy; Z85.89 Personal history of malignant neoplasm of other organs and systems
CPT/HCPCS: 73501; 80048; 81003; 85025; 86850; 86891; 86900; 86901; 88300